=== PATIENT | male | born 1990 | race Caucasian/White ===

== ENCOUNTER 2023-10-27 17:52 | Emergency (ER) | payer OTHER | END 2023-10-27 19:18 | disposition home or self-care (01) | LOC: JD.ED 17:52 | DX: T22.10XA Burn of first degree of shoulder and upper limb, except wrist and hand, unspecified site, initial encounter (principal); T21.14XA Burn of first degree of lower back, initial encounter; Z88.8 Allergy status to other drugs, medicaments and biological substances; X16.XXXA Contact with hot heating appliances, radiators and pipes, initial encounter | CPT/HCPCS: 99283 ==